=== PATIENT | male | born 1955 | race Caucasian/White ===

== ENCOUNTER → 2016-12-02 | Outpatient (CLI) | payer BC, OTHER | LOC: RAD 08:02 | PROVIDERS: ATTEND Specialist | DX: C34.91 Malignant neoplasm of unspecified part of right bronchus or lung (principal) | CPT/HCPCS: 71260 ==

== ENCOUNTER → 2017-03-26 | Outpatient (CLI) | payer BC ==
[2017-03-26 18:57] LABS: ALANINE AMINOTRANSFERASE 28 U/L (21-72); ALBUMIN 3.8 g/dL (3.5-5.0); ALKALINE PHOSPHATASE 108 U/L (38-126); ANION GAP 9 (5-19); ASPARTATE AMINO TRANSFERASE 21 U/L (17-59); BILIRUBIN,DIRECT 0.6 mg/dL (0.0-0.4); BILIRUBIN,TOTAL 1.5 mg/dL (0.2-1.3); BLOOD UREA NITROGEN 16 mg/dL (7-20); CARBON DIOXIDE 28 mmol/L (22-30); CHLORIDE 105 mmol/L (98-107); CREATININE RESULT 1.12 mg/dL (0.52-1.25); GLUCOSE 100 mg/dL (75-110); POTASSIUM 4.6 mmol/L (3.6-5.0); SODIUM 141.9 mmol/L (137-145); TOTAL PROTEIN 6.9 g/dL (6.3-8.2)
[2017-03-26 19:27] LABS: CARCINOEMBRYONIC ANTIGEN 11.3 ng/mL (<3.0)
== END ==
LOC: OD 17:25
PROVIDERS: ATTEND Specialist
DX: C34.91 Malignant neoplasm of unspecified part of right bronchus or lung (principal)
CPT/HCPCS: 36415; 80053; 82378

== ENCOUNTER → 2017-04-01 | Outpatient (CLI) | payer BC ==
--- NOTE | 2017-04-01 12:00 | RADIOLOGY REPORT (SQ) ---
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 TECHNIQUE: Multiplanar imaging includes noncontrasted T1, T2, FLAIR, diffusion with ADC map and post gadolinium contrast T1 sequences. Images stored on PACS. CONTRAST TYPE AND DOSE: 15 mL Multihance. RENAL FUNCTION: GFR > 60. LIMITATIONS: None. FINDINGS: ANATOMY: No anomalies. Normal vascular flow voids. Pituitary fossa normal. CSF SPACES: Normal in size and contour. No hemorrhage. CEREBRUM: Sulci and gyri normal in size and contour. Normal white matter signal on FLAIR imaging. No evidence of hemorrhage, mass, or extraaxial fluid collection. No abnormal enhancement post contrast. POSTERIOR FOSSA: No signal alteration. No hemorrhage. No edema, masses, or mass effect. Internal yamile tory canals, cerebellopontine angles, mastoids normal. No enhancing lesions. No abnormal enhancement post contrast. DIFFUSION IMAGING: Negative for acute or subacute infarction. ORBITS: No masses. Globes normal. PARANASAL SINUSES: No fluid levels. OTHER: No other significant finding. IMPRESSION: NORMAL MRI OF THE BRAIN WITHOUT AND WITH INTRAVENOUS GADOLINIUM CONTRAST. TECHNICAL DOCUMENTATION: JOB ID: [id number] [employer]- All Rights Reserved
== END ==
LOC: RAD 09:01
PROVIDERS: ATTEND Specialist
DX: C34.91 Malignant neoplasm of unspecified part of right bronchus or lung (principal)
CPT/HCPCS: 70553; A9577

== ENCOUNTER → 2017-06-19 | Outpatient (CLI) | payer BC ==
--- NOTE | 2017-06-19 13:26 | RADIOLOGY REPORT (SQ) ---
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 TECHNIQUE: Blood glucose level was verified. Above dose of FDG was injected intravenously. 2-D seg mented attenuation correction images were obtained from the base of the skull to the midthighs. Nonc ontrast CT images were obtained for attenuation correction and fusion with emission images. CT image s were performed without oral or intravenous contrast and are not sensitive for parenchymal lesions. A series of overlapping emission PET images were obtained. Images reviewed and manipulated at [facility] work station by the radiologist. Images stored on PACS. LIMITATIONS: None. FINDINGS: HEAD AND NECK: No areas of abnormal metabolic activity in the soft tissues of the head and neck. CHEST: Since the prior PET-CT on 03/24/2017, and since the prior CT chest 12/02/2016, patient has develo ped mediastinal adenopathy which is hypermetabolic. Index lesions are as follows: Prevascular 1.8 x 1.1 cm lymph node axial image 89, SUV 3.8 Left hilar 1.1 x 0.9 cm in lymph node axial image 98, SUV 3.9 Right hilar lymph node 1.3 x 1.3 cm axial image 99, SUV 4.7 Sub- carinal lymph node 3.8 x 1.2 cm axial image 102, SUV 4.5. ABDOMEN AND PELVIS: Along the right lobe liver subdiaphragmatic surface axial image 23, a 3 x 2.6 cm hypermetabolic mass is present with SUV 8.5 (was 1.5 cm in size, SUV 6.3 on prior PET-CT 03/24/2017). In the right lobe liver anterior segment axial image 132, a 2 x 2 cm hypermetabolic mass is present w ith SUV 6.6 (was 2.2 cm in size on 03/24/2017 PET-CT). PROXIMAL LOWER EXTREMITIES: No areas of abnormal metabolic activity in the soft tissues of the lower extremities. BONES: No abnormal metabolic activity in the visualized skeleton. ADDITIONAL CT FINDINGS: Right upper lobectomy. Small hiatal hernia. Minimal left coronary artery ca lcification. OTHER: Baseline blood pool activity SUV 1.5, background liver activity SUV 1.8. IMPRESSION: Since the prior most recent studies, patient has developed hypermetabolic mediastinal ad enopathy. Sub- diaphragmatic surface left lobe liver lesion has increased in size TECHNICAL DOCUMENTATION: JOB ID: [id number] [employer]- All Rights Reserved
== END ==
LOC: RAD 08:18
PROVIDERS: ATTEND Internal Medicine
DX: C34.91 Malignant neoplasm of unspecified part of right bronchus or lung (principal)
CPT/HCPCS: 78815; A9552

== ENCOUNTER → 2017-10-07 | Outpatient (CLI) | payer BC ==
--- NOTE | 2017-10-07 11:13 | RADIOLOGY REPORT (SQ) ---
EXAM DESCRIPTION: CT CHEST WITH; CT ABD/PELVIS WITH IV ORAL COMPLETED DATE/TIME: 10/07/2017 8:33 am REASON FOR STUDY: C34.91 MALIGNANT NEOPLASM OF UNSPECIFIED PART OF RIGHT BRONCHUS OR LUNG C34.91 MA LIGNANT NEOPLASM OF UNSP PART OF RIGHT BRONCHUS OR COMPARISON: PET-CT 06/19/2017 CT chest 12/02/2016, 06/02/2016, 11/28/2015 CT chest abdomen pelvis 05/15/2015 CONTRAST TYPE AND DOSE: contrast/concentration: Isovue 370.00 mg/ml; Total Contrast Delivered: 79.0 ml; Total Saline Delivered: 68.0 ml RENAL FUNCTION: Creatinine 0.9 TECHNIQUE: CT scan of the chest performed using helical scanning technique with dynamic intravenous contrast injection. Images reviewed with lung, soft tissue and bone windows. Reconstructed coronal a nd sagittal MPR images reviewed. All images stored on PACS. CT scan of the abdomen and pelvis performed with intravenous and with oral contrastusing helical scan chema technique with dynamic intravenous contrast injection. Images reviewed with lung, soft tissue a nd bone windows. Reconstructed coronal and sagittal MPR images reviewed. Delayed images for evaluat ion of the urinary system also acquired and evaluated. All images stored on PACS. All CT scanners at this facility use dose modulation, iterative reconstruction, and/or weight based d osing when appropriate to reduce radiation dose to as low as reasonably achievable (ALARA). [facility]: Dose Right [facility]: CareDose [facility]: Dose Right [facility]: Teradose 4D [facility]: Smart [employer] RADIATION DOSE: CT Rad equipment meets quality standard of care and radiation dose reduction techniq ues were employed. CTDIvol: 7.0 - 8.3 mGy. DLP: 1093 mGy-cm. . LIMITATIONS: None. FINDINGS: CHEST: LUNGS AND PLEURA: Post right upper lobectomy. No worrisome lung nodules. No pleural effusions or pl eural nodules. No pneumothorax. Airways are patent. HILAR AND MEDIASTINAL STRUCTURES: Stable mediastinal adenopathy compared to 06/19/2017 as follows: Prevascular node 2 x 1.4 cm axial image 22 Left hilum node 1.2 x 0.7 cm axial image 27 Right hilum 1.1 x 0.7 cm node axial image 27 Sub- carinal 3.1 x 1.2 cm node axial image 29. HEART AND VASCULAR STRUCTURES: No aneurysm or dissection. No central pulmonary emboli. No pericardi al effusion. HARDWARE: None. THYROID AND OTHER SOFT TISSUES: No masses. No adenopathy. BONES: No significant finding. OTHER: No other significant finding. ABDOMEN AND PELVIS: LIVER: Decrease in size of liver nodules compared to 06/19/2017 as follows: Right lobe liver subdiaphr agmatic surface 2.3 x 2.3 cm (was 3 x 2.6 cm on 06/19/2017) Right lobe liver inferiorly 1.4 x 1.4 cm (was 2 x 2 cm on 06/19/2017) SPLEEN: Normal size. No focal lesions. PANCREAS: No masses. No significant calcifications. No adjacent inflammation or peripancreatic fluid collections. Pancreatic duct not dilated. GALLBLADDER: No identified stones by CT criteria. No inflammatory changes to suggest cholecystitis. ADRENAL GLANDS: No significant masses or asymmetry. RIGHT KIDNEY AND URETER: No solid masses. No significant calcification. No hydronephrosis or hydroure ter. LEFT KIDNEY AND URETER: No solid masses. 1 cm hemorrhagic cyst left upper pole kidney axial image 28 unchanged. No significant calcification. No hydronephrosis or hydroureter. AORTA AND VESSELS: No aneurysm. No dissection. Renal arteries, SMA, celiac without stenosis. RETROPERITONEUM: There is a celiac lymph node on abdomen CT image 27, 2.1 x 2.1 cm size. This is un changed from prior PET-CT 06/19/2017 and is better visualized today due to IV contrast BOWEL AND PERITONEAL CAVITY: No masses or inflammatory changes. No free fluid or peritoneal masses. APPENDIX: Normal. ABDOMINAL WALL: No masses. No hernias. BONES: No significant or acute findings. PELVIS: Enlarged prostate. Grossly normal bladder and rectum. No adenopathy or free fluid. No othe r significant finding. IMPRESSION: Stable mediastinal lymph nodes compared to PET-CT 06/19/2017 Decrease in size of right lobe liver metastatic lesions compared to PET-CT 06/19/2017 Stable celiac lymph node compared to PET-CT 06/19/2017 TECHNICAL DOCUMENTATION: JOB ID: [id number] Quality ID # 436: Final reports with documentation of one or more dose reduction techniques (e.g., Au tomated exposure control, adjustment of the mA and/or kV according to patient size, use of iterative reconstruction technique) 2010 [employer]- All Rights Reserved
== END ==
LOC: RAD 08:00
PROVIDERS: ATTEND Internal Medicine Hematology & Oncology
DX: C34.91 Malignant neoplasm of unspecified part of right bronchus or lung (principal); C78.7 Secondary malignant neoplasm of liver and intrahepatic bile duct
CPT/HCPCS: 71260; 74177

== ENCOUNTER → 2017-12-21 | Outpatient (CLI) | payer BC ==
--- NOTE | 2017-12-21 11:48 | RADIOLOGY REPORT (SQ) ---
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 Images reviewed with lung, soft tissue and bone windows. Reconstructed coronal and sagittal MPR images reviewed. All images stored on PACS. All CT scanners at this facility use dose modulation, iterative reconstruction, and/or weight based d osing when appropriate to reduce radiation dose to as low as reasonably achievable (ALARA). [facility]: Dose Right [facility]: CareDose [facility]: Dose Right [facility]: Teradose 4D [facility]: [employer] CONTRAST TYPE AND DOSE: contrast/concentration: Isovue 370.00 mg/ml; Total Contrast Delivered: 80.0 ml; Total Saline Delivered: 55.0 ml RENAL FUNCTION: BUN 12 creatinine 1.0 RADIATION DOSE: CT Rad equipment meets quality standard of care and radiation dose reduction techniq ues were employed. CTDIvol: 11.7 mGy. DLP: 474 mGy-cm. . LIMITATIONS: None. FINDINGS: LUNGS AND PLEURA: Prior right upper lobectomy. No suspicious nodules. No effusions. HILAR AND MEDIASTINAL STRUCTURES: No identified masses or abnormal nodes. HEART AND VASCULAR STRUCTURES: No aneurysm or dissection. No central pulmonary emboli. No pericardi al effusion. HARDWARE: None in the chest. UPPER ABDOMEN: Stable liver lesions. THYROID AND OTHER SOFT TISSUES: No masses. No adenopathy. BONES: No significant finding. OTHER: No other significant finding. IMPRESSION: Stable appearance of the chest. TECHNICAL DOCUMENTATION: JOB ID: [id number] Quality ID # [id number]: Final reports with documentation of one or more dose reduction techniques (e.g., Au tomated exposure control, adjustment of the mA and/or kV according to patient size, use of iterative reconstruction technique) 2010 [employer]- All Rights Reserved Reading location - IP/workstation name: [email or web address]
== END ==
LOC: RAD 08:23
PROVIDERS: ATTEND Internal Medicine Hematology & Oncology
DX: C34.91 Malignant neoplasm of unspecified part of right bronchus or lung (principal)
CPT/HCPCS: 71260

== ENCOUNTER → 2018-03-25 | Outpatient (CLI) | payer BC ==
--- NOTE | 2018-03-25 11:03 | RADIOLOGY REPORT (SQ) ---
EXAM DESCRIPTION: U/S ABDOMEN LIMITED W/O DOP COMPLETED DATE/TIME: 03/25/2018 10:46 am REASON FOR STUDY: ABDOMINAL PAIN R10.9 UNSPECIFIED ABDOMINAL PAIN COMPARISON: CT dated 10/07/2017 and PET-CT dated 06/19/2017. TECHNIQUE: Dynamic and static grayscale images acquired of the abdomen and recorded on PACS. Additio nal selected color Doppler and spectral images recorded. LIMITATIONS: None. FINDINGS: PANCREAS: No masses. Visualized pancreatic duct normal caliber. LIVER: Masses measuring 2.7 cm and 2.8 cm. Echotexture normal. LIVER VASCULATURE: Normal directional flow of the main portal vein and hepatic veins. GALLBLADDER: No stones. Normal wall thickness. No pericholecystic fluid. ULTRASOUND-DETECTED HICKEY'S SIGN: Negative. INTRAHEPATIC DUCTS AND COMMON DUCT: CBD and intrahepatic ducts normal caliber. No filling defects. INFERIOR VENA CAVA: Normal flow. AORTA: No aneurysm. RIGHT KIDNEY: Normal size. Normal echogenicity. No solid or suspicious masses. No hydronephrosis. No calcifications. PERITONEAL AND RIGHT PLEURAL SPACE: No ascites or effusions. OTHER: No other significant findings. IMPRESSION: TWO HEPATIC MASSES, ALSO SEEN ON PREVIOUS CT AND PET SCAN. NO OTHER SIGNIFICANT FINDING . TECHNICAL DOCUMENTATION: JOB ID: [id number] [employer]- All Rights Reserved Reading location - IP/workstation name: [email or web address]
== END ==
LOC: RAD 09:43
PROVIDERS: ATTEND Internal Medicine Hematology & Oncology
DX: R10.9 Unspecified abdominal pain (principal); E80.7 Disorder of bilirubin metabolism, unspecified
CPT/HCPCS: 76705

== ENCOUNTER → 2018-04-16 | Outpatient (CLI) | payer BC ==
--- NOTE | 2018-04-16 10:19 | RADIOLOGY REPORT (SQ) ---
EXAM DESCRIPTION: CT CHEST WITH; CT ABDOMEN WITH IV ORAL CONT COMPLETED DATE/TIME: 04/16/2018 8:56 am REASON FOR STUDY: LUNG CA C34.91 MALIGNANT NEOPLASM OF UNSP PART OF RIGHT BRONCHUS OR COMPARISON: CT chest 12/21/2017 CONTRAST TYPE AND DOSE: contrast/concentration: Isovue 370.00 mg/ml; Total Contrast Delivered: 80.6 ml; Total Saline Delivered: 20.0 ml RENAL FUNCTION: Creatinine 1.0 TECHNIQUE: CT scan of the chest performed using helical scanning technique with dynamic intravenous contrast injection. Images reviewed with lung, soft tissue and bone windows. Reconstructed coronal a nd sagittal MPR images reviewed. All images stored on PACS. CT scan of the abdomen and pelvis performed with intravenous and with oral contrastusing helical scan chema technique with dynamic intravenous contrast injection. Images reviewed with lung, soft tissue a nd bone windows. Reconstructed coronal and sagittal MPR images reviewed. Delayed images for evaluat ion of the urinary system also acquired and evaluated. All images stored on PACS. All CT scanners at this facility use dose modulation, iterative reconstruction, and/or weight based d osing when appropriate to reduce radiation dose to as low as reasonably achievable (ALARA). [facility]: Dose Right [facility]: CareDose [facility]: Dose Right [facility]: Teradose 4D [facility]: [employer] RADIATION DOSE: CT Rad equipment meets quality standard of care and radiation dose reduction techniq ues were employed. CTDIvol: 7.9 - 10.0 mGy. DLP: 1102 mGy-cm. . LIMITATIONS: None. FINDINGS: CHEST: LUNGS AND PLEURA: No opacities, nodules, masses. No pneumothorax. No effusions. Post right upper lo bectomy. HILAR AND MEDIASTINAL STRUCTURES: No identified masses or abnormal nodes. The mediastinal and hilar adenopathy seen on CT chest abdomen pelvis 10/07/2017 has resolved. HEART AND VASCULAR STRUCTURES: No aneurysm or dissection. No central pulmonary emboli. No pericardi al effusion. HARDWARE: None. THYROID AND OTHER SOFT TISSUES: No masses. No adenopathy. BONES: No significant finding. OTHER: No other significant finding. ABDOMEN AND PELVIS: LIVER: The sub- diaphragmatic surface right lobe liver mass is now 2.6 x 2.4 cm in size (was 1.9 x 1. 2 cm on 12/21/2017, 2.3 x 2.3 cm on 10/07/2017). The inferior right lobe liver lesion is now 2.4 x 2.2 cm in size (was 1.3 x 1.1 cm 12/21/2017, was 1.4 x 1.4 cm on 10/07/2017). SPLEEN: Normal size. No focal lesions. PANCREAS: No masses. No significant calcifications. No adjacent inflammation or peripancreatic fluid collections. Pancreatic duct not dilated. GALLBLADDER: No identified stones by CT criteria. No inflammatory changes to suggest cholecystitis. ADRENAL GLANDS: No significant masses or asymmetry. RIGHT KIDNEY AND URETER: No solid masses. No significant calcification. No hydronephrosis or hydroure ter. LEFT KIDNEY AND URETER: No solid masses. Subcentimeter hemorrhagic cyst left upper pole kidney. No significant calcification. No hydronephrosis or hydroureter. AORTA AND VESSELS: No aneurysm. No dissection. Renal arteries, SMA, celiac without stenosis. RETROPERITONEUM: There is an enlarged celiac lymph node, 3.6 x 2.2 cm in size (was 2.1 x 2.1 cm on ). This lymph node is best shown on axial image 61. BOWEL AND PERITONEAL CAVITY: Patient drank oral contrast. No CT evidence of bowel obstruction. No f ree intraperitoneal air or fluid. Few colonic diverticuli APPENDIX: Normal. ABDOMINAL WALL: No masses. No hernias. PELVIS: No mass or free fluid. Normal bladder. BONES: No significant or acute findings. OTHER: No other significant finding. IMPRESSION: Post right upper lobectomy. Mediastinal and hilar adenopathy seen on prior exams has re solved. Increase in size of liver lesions Increase in size of celiac lymph node TECHNICAL DOCUMENTATION: JOB ID: [id number] Quality ID # [id number]: Final reports with documentation of one or more dose reduction techniques (e.g., Au tomated exposure control, adjustment of the mA and/or kV according to patient size, use of iterative reconstruction technique) 2010 [email or web address]- All Rights Reserved Reading location - IP/workstation name: [email or web address]
== END ==
LOC: RAD 07:48
PROVIDERS: ATTEND Internal Medicine Hematology & Oncology
DX: C34.91 Malignant neoplasm of unspecified part of right bronchus or lung (principal)
CPT/HCPCS: 71260; 74160

== ENCOUNTER → 2018-06-29 | Outpatient (CLI) | payer BC ==
--- NOTE | 2018-06-29 10:10 | RADIOLOGY REPORT (SQ) ---
EXAM DESCRIPTION: CT CHEST WITH; CT ABDOMEN WITH IV ORAL CONT COMPLETED DATE/TIME: 06/29/2018 9:23 am REASON FOR STUDY: LUNG CA (C34.91) C34.91 MALIGNANT NEOPLASM OF UNSP PART OF RIGHT BRONCHUS OR COMPARISON: PET-CT 06/19/2017 CT chest abdomen and pelvis 04/16/2018, 05/15/2015 CT chest 12/21/2017, 10/07/2017 CONTRAST TYPE AND DOSE: contrast/concentration: Isovue 350.00 mg/ml; Total Contrast Delivered: 92.0 ml; Total Saline Delivered: 71.0 ml RENAL FUNCTION: Creatinine 1.0 TECHNIQUE: CT scan of the chest performed using helical scanning technique with dynamic intravenous contrast injection. Images reviewed with lung, soft tissue and bone windows. Reconstructed coronal a nd sagittal MPR images reviewed. All images stored on PACS. CT scan of the abdomen performed with intravenous and with oral contrastusing helical scanning techni que with dynamic intravenous contrast injection. Images reviewed with lung, soft tissue and bone win dows. Reconstructed coronal and sagittal MPR images reviewed. Delayed images for evaluation of the urinary system also acquired and evaluated. All images stored on PACS. All CT scanners at this facility use dose modulation, iterative reconstruction, and/or weight based d osing when appropriate to reduce radiation dose to as low as reasonably achievable (ALARA). [facility]: Dose Right [facility]: CareDose [facility]: Dose Right [facility]: Teradose 4D [facility]: [employer] RADIATION DOSE: CT Rad equipment meets quality standard of care and radiation dose reduction techniq ues were employed. CTDIvol: 6.4 - 6.6 mGy. DLP: 735 mGy-cm. . LIMITATIONS: None. FINDINGS: CHEST: LUNGS AND PLEURA: Post right upper lobectomy. No masses. No pleural effusion. No acute infiltrates . No pneumothorax. HILAR AND MEDIASTINAL STRUCTURES: No identified masses or abnormal nodes. HEART AND VASCULAR STRUCTURES: No aneurysm or dissection. No central pulmonary emboli. No pericardi al effusion. HARDWARE: None. THYROID AND OTHER SOFT TISSUES: No masses. No adenopathy. BONES: No significant finding. OTHER: No other significant finding. ABDOMEN AND PELVIS: LIVER: Increase in size of liver masses compared to 04/16/2018 as follows: Right lobe sub- diaphragmatic surface 4 x 3.7 cm mass (was 2.6 x 2.4 cm 04/16/2018). Right lobe liver 3 x 2.4 cm mass (was 2.3 x 2.2 cm 04/16/2018). SPLEEN: Normal size. No focal lesions. PANCREAS: No masses. No significant calcifications. No adjacent inflammation or peripancreatic fluid collections. Pancreatic duct not dilated. GALLBLADDER: No identified stones by CT criteria. No inflammatory changes to suggest cholecystitis. ADRENAL GLANDS: No significant masses or asymmetry. RIGHT KIDNEY AND URETER: No solid masses. No significant calcification. No hydronephrosis or hydroure ter. LEFT KIDNEY AND URETER: No solid masses. No significant calcification. No hydronephrosis or hydrouret er. AORTA AND VESSELS: No aneurysm. No dissection. Renal arteries, SMA, celiac without stenosis. RETROPERITONEUM: Celiac lymph node measures 3.8 x 2.4 cm in size on axial image 28 (was 3.6 x 2.3 cm on 04/16/2018). BOWEL AND PERITONEAL CAVITY: No masses or inflammatory changes. No free fluid or peritoneal masses. APPENDIX: Normal. ABDOMINAL WALL: No masses. No hernias. BONES: No significant or acute findings. OTHER: No other significant finding. IMPRESSION: Post right upper lobectomy. No recurrent mediastinal masses or adenopathy. Increase in size of liver lesions and celiac lymph node compared to 04/16/2018. TECHNICAL DOCUMENTATION: JOB ID: [id number] Quality ID # [id number]: Final reports with documentation of one or more dose reduction techniques (e.g., Au tomated exposure control, adjustment of the mA and/or kV according to patient size, use of iterative reconstruction technique) 2010 [employer]- All Rights Reserved Reading location - IP/workstation name: [email or web address]
== END ==
LOC: RAD 07:55
PROVIDERS: ATTEND Internal Medicine Hematology & Oncology
DX: C34.91 Malignant neoplasm of unspecified part of right bronchus or lung (principal)
CPT/HCPCS: 71260; 74160

== ENCOUNTER 2019-04-21 09:25 | Emergency (ER) | payer BC ==
[2019-04-21] MEDS ORDERED: ONDANSETRON 4 MG TAB.RAPDIS PO ONE (10:03)
--- NOTE | 2019-04-21 10:03 | ER Document Report ---
ED Medical Screen (RME) - General Chief Complaint: Shortness Of Breath Stated Complaint: SHORTNESS OF BREATH Time Seen by Provider: 04/21/19 10:00 Primary Care Provider: CARLOTTA LUCIO MD [Primary Care Provider] - Follow up as needed Mode of Arrival: Ambulatory Information source: Patient Notes: 63-year-old male presented to ED for complaint of shortness of breath and right flank pain. He states he has a history of liver problems kidney problems he is been very short of breath yesterday and today he vomited once yesterday and twice today. He states he does not have chest pain. Patient is alert oriented respirations regular and unlabored speaking in full sentences walks with even steady gait. He is a former smoker does not use drugs or alcohol. I have greeted and performed a rapid initial assessment of this patient. A comprehensive ED assessment and evaluation of the patient, analysis of test results and completion of medical decision making process will be conducted by an additional ED providers. Dictation of this chart was performed using voice recognition software; therefore, there may be some unintended grammatical errors. TRAVEL OUTSIDE OF THE [place] IN LAST 30 DAYS: No - Related Data Allergies/Adverse Reactions: diphenhydramine HCl [From Benadryl] Allergy (Verified 02/21/14 09:40) Past Medical History - Past Medical History Cardiac Medical History: Reports: Hx Hypercholesterolemia, Hx Hypertension - HX OF Denies: Hx Coronary Artery Disease, Hx Heart Attack Pulmonary Medical History: Denies: Hx Asthma, Hx Bronchitis, Hx COPD, Hx Pneumonia Neurological Medical History: Denies: Hx Cerebrovascular Accident, Hx Seizures Renal/ Medical History: Reports: Hx Kidney Stones. Denies: Hx End Stage Renal Disease, Hx Renal Insufficiency GI Medical History: Reports: Hx Gastroesophageal Reflux Disease Musculoskeltal Medical History: Denies Hx Arthritis - Immunizations Hx Diphtheria, Pertussis, Tetanus Vaccination: No History of Influenza Vaccine for 07/2017 - 12/2017 Season: Unknown Physical Exam - Vital signs Vitals: Temp Pulse Resp BP Pulse Ox 97.7 F 58 L 16 163/75 H 99 04/21/19 09:37 04/21/19 09:37 04/21/19 09:37 04/21/19 09:37 04/21/19 09:37 Course - Vital Signs Vital signs: Temp Pulse Resp BP Pulse Ox 97.7 F 58 L 16 163/75 H 99 07/04/19 09:37 04/21/19 09:37 04/21/19 09:37 04/21/19 09:37 04/21/19 09:37 Doctor's Discharge - Discharge Referrals: CARLOTTA LUCIO MD [Primary Care Provider] - Follow up as needed
[2019-04-21 10:37] LABS: ABSOLUTE BASOPHILS # (AUTO) 0.1 10^3/uL (0.0-0.2); ABSOLUTE EOSINOPHILS # (AUTO) 0.3 10^3/uL (0.0-0.6); ABSOLUTE LYMPHOCYTES (AUTO) 0.6 10^3/uL (0.5-4.7); ABSOLUTE MONOCYTES (AUTO) 0.2 10^3/uL (0.1-1.4); ABSOLUTE NEUT (AUTO) 5.9 10^3/uL (1.7-8.2); BASOPHILS % (AUTO) 0.8 % (0-2); EOSINOPHILS % (AUTO) 4.3 % (0-6); LYMPHOCYTES % (AUTO) 8.8 % (13-45); MEAN CORPUSCULAR HEMOGLOBIN 29.6 pg (27.0-33.4); MEAN CORPUSCULAR HGB CONC 33.3 g/dL (32.0-36.0); MEAN CORPUSCULAR VOLUME 89 fl (80-97); MONOCYTES % (AUTO) 3.4 % (3-13); PLATELET COUNT 445 10^3/uL (150-450); RED BLOOD COUNT 4.06 10^6/uL (4.35-5.55); RED CELL DISTRIBUTION WIDTH 13.6 % (11.5-14.0); SEGMENTED NEUTROPHILS % (AUTO) 82.7 % (42-78); TOTAL CELLS COUNTED % (AUTO) 100 %; WHITE BLOOD COUNT 7.2 10^3/uL (4.0-10.5)
[2019-04-21 10:42] LABS: PROTHROMBIN TIME 13.2 SEC (11.4-15.4)
[2019-04-21 10:43] LABS: PARTIAL THROMBOPLASTIN TIME 33.2 SEC (23.5-35.8)
[2019-04-21 10:45] LABS: AMORPHOUS SEDIMENT,URINE TRACE /HPF; APPEARANCE,URINE CLOUDY; BILIRUBIN,URINE NEGATIVE (NEGATIVE); COLOR,URINE YELLOW; GLUCOSE, URINE NEGATIVE (NEGATIVE); KETONES,URINE NEGATIVE (NEGATIVE); LEUKOCYTE ESTERASE,URINE NEGATIVE (NEGATIVE); NITRITE,URINE NEGATIVE (NEGATIVE); PROTEIN,URINE NEGATIVE (NEGATIVE); URINE SPECIFIC GRAVITY 1.013
[2019-04-21 10:52] LABS: ALANINE AMINOTRANSFERASE 16 U/L (21-72); ALBUMIN 3.7 g/dL (3.5-5.0); ALKALINE PHOSPHATASE 131 U/L (38-126); ANION GAP 7 (5-19); ASPARTATE AMINO TRANSFERASE 24 U/L (17-59); BILIRUBIN,DIRECT 0.2 mg/dL (0.0-0.4); BILIRUBIN,TOTAL 0.4 mg/dL (0.2-1.3); BLOOD UREA NITROGEN 14 mg/dL (7-20); CALCIUM 9.6 mg/dL (8.4-10.2); CARBON DIOXIDE 34 mmol/L (22-30); CHLORIDE 97 mmol/L (98-107); GLUCOSE 96 mg/dL (75-110); LIPASE 69.5 U/L (23-300); SODIUM 137.5 mmol/L (137-145); TOTAL PROTEIN 6.7 g/dL (6.3-8.2)
[2019-04-21 10:53] LABS: CREATINE KINASE < 20 U/L (55-170)
--- NOTE | 2019-04-21 10:58 | ER Document Report ---
ED Respiratory Problem - General Chief Complaint: Shortness Of Breath Stated Complaint: SHORTNESS OF BREATH Time Seen by Provider: 04/21/19 10:00 Primary Care Provider: CARLOTTA LUCIO MD [Primary Care Provider] - Follow up as needed Mode of Arrival: Ambulatory Notes: Patient says he feels like he "cannot breathe" this morning. He says it started a little bit yesterday, but much worse today. Feels like he cannot get a good deep breath. Says is been going on for a couple of months intermittently but not this bad. Since he arrived here at the emergency department, he is also noticed that he is having shakes and feeling cold. Complains of some pain in the right side of his lower back. Vomited 2 or 3 times since yesterday. No diarrhea. Actually, constipated because he is on oxycodone and fentanyl patches for pain. Patient denies any significant cough or chest congestion. Has not had any fever. No new TIA symptoms. Patient's past history is significant and that he has cancer of the lung with mets to liver and kidney. He was diagnosed 3 years ago. Had a 3 cm mass rem ezra from his lung early in his disease. Was on chemotherapy but chose to stop taking it this spring because it was "killing me". Patient sees Dr. Corona, local oncologist. Patient says he has lost about 60 pounds over the past year, saying he weighed about 210 pounds a year ago and in triage today he is 144 pounds. No history of blood clots. 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 Does not smoke for over 30 years. TRAVEL OUTSIDE OF THE [place] IN LAST 30 DAYS: No - Related Data Allergies/Adverse Reactions: diphenhydramine HCl [From Benadryl] Allergy (Verified 02/21/14 09:40) Past Medical History - General Information source: Patient - Social History Smoking Status: Former Smoker - Stopped over 30 years ago. Chew tobacco use (# tins/day): No Frequency of alcohol use: None Drug Abuse: None Family History: Reviewed & Not Pertinent Patient has suicidal ideation: No Patient has homicidal ideation: No - Past Medical History Cardiac Medical History: Reports: Hx Hypercholesterolemia, Hx Hypertension - HX OF Denies: Hx Coronary Artery Disease, Hx Heart Attack Pulmonary Medical History: Reports: Other - See HPI. Neurological Medical History: Denies: Hx Cerebrovascular Accident, Hx Seizures Endocrine Medical History: Denies: Hx Diabetes Mellitus Type 1, Hx Diabetes Mellitus Type 2 Renal/ Medical History: Reports: Hx Kidney Stones Malignancy Medical History: Reports Hx Lung Cancer - Lung cancer with metastases to liver and kidney GI Medical History: Reports: Hx Gastroesophageal Reflux Disease Musculoskeletal Medical History: Denies Hx Arthritis Past Surgical History: Reports: Other - Lung surgery about 3 years ago for a mass, determined to be cancer. - Immunizations Hx Diphtheria, Pertussis, Tetanus Vaccination: No Review of Systems - Review of Systems Notes: REVIEW OF SYSTEMS: CONSTITUTIONAL : Denies fever. EENT: Denies eye, ear, nose or mouth or throat pain or other symptoms. CARDIOVASCULAR: Denies chest pain. RESPIRATORY: Denies cough, chest congestion, but experiencing shortness of breath. GASTROINTESTINAL: Denies abdominal pain. Has had vomiting 2 or 3 times since yesterday. Constipated, likely due to narcotic pain medications. GENITOURINARY: Denies difficulty or painful urinating, urinary frequency, blood in urine. MUSCULOSKELETAL: Has chronic back pain and arthritis. Also pain in the right hip. Denies neck pain. Denies joint pain or swelling. SKIN: Denies rash or skin lesions. NEUROLOGICAL: Denies LOC or altered mental status. Denies headache. Denies sensory loss or motor deficits. ALL OTHER SYSTEMS REVIEWED AND NEGATIVE. Physical Exam - Vital signs Vitals: Temp Pulse Resp BP Pulse Ox 97.7 F 58 L 16 163/75 H 99 04/21/19 09:37 04/21/19 09:37 04/21/19 09:37 04/21/19 09:37 04/21/19 09:37 Interpretation: Normal Notes: PHYSICAL EXAMINATION: GENERAL: Well-appearing, in no acute distress. HEAD: Atraumatic, normocephalic. EYES: Pupils equal round and reactive to light, extraocular movements intact. ENT: oropharynx clear without exudates. Moist mucous membranes. NECK: Normal range of motion, supple. LUNGS: Breath sounds clear and equal bilaterally. HEART: Regular rate and rhythm without murmurs. ABDOMEN: Soft, nontender. No guarding or rebound. No masses. BACK: No tenderness throughout entire back. EXTREMITIES: Normal range of motion without pain. No leg tenderness. Negative Homans bilaterally. NEUROLOGICAL: Normal speech, normal gait. Normal sensory, motor, and reflex exams. Awake, alert, and oriented x3. Cranial nerves normal. PSYCH: Normal mood, normal affect. SKIN: Warm, dry, no rashes. Course - Re-evaluation Re-evalutation: 04/21/19 14:27 Patient's CTA of the chest shows no evidence of any pulmonary emboli. Patient does have a 2 cm right apical mass and he was made aware. His CT of the abdomen with IV contrast showed 2 large confluent liver masses. All the rest of the patient's lab results are all essentially normal. I asked the patient if he thinks stress might be playing a role in his symptoms and he said he definitely we are going to give the patient a trial of Ativan to see if that helps his symptoms. Thinks that what is causing his breathing difficulties. He has an oxygen saturation of 98, 99, 100% on room air now. Patient will be given a prescription for some Ativan to try to see if that helps his symptoms. He is being asked to call his oncologist office on Thursday to make her aware of his studies and so they can review them. - Vital Signs Vital signs: Temp Pulse Resp BP Pulse Ox 97.7 F 58 L 15 146/82 H 98 04/21/19 09:37 04/21/19 09:37 04/21/19 14:01 04/21/19 14:01 04/21/19 14:01 - Laboratory Result Diagrams: 04/21/19 10:18 04/21/19 10:18 Laboratory results interpreted by me: 04/21/19 04/21/19 04/21/19 10:18 10:18 10:18 RBC 4.06 L Hgb 12.0 L Hct 36.0 L Seg Neutrophils % 82.7 H Lymphocytes % 8.8 L Chloride 97 L Carbon Dioxide 34 H ALT 16 L Alkaline Phosphatase 131 H Creatine Kinase < 20 L Urine Urobilinogen 2.0 H Discharge - Discharge Clinical Impression: Dyspnea, Lung cancer, Anxiety Condition: Stable Disposition: HOME, SELF-CARE Additional Instructions: SHORTNESS OF BREATH OR DYSPNEA: You were evaluated for shortness of breath, or dyspnea. Dyspnea has many causes, and some are more serious than others. Sometimes it's impossible to diagnose the cause of dyspnea with the tests that are available on an emergency basis. Based on our evaluation today, you do not need hospitalization now. We found no evidence of pneumonia, collapsed lung, blood clots in the lung, tumors, or heart failure. Causes of non-specific dyspnea can include asthma or bronchospasm, hyperventilation, emotional distress, heart disease, emphysema, fibrosis of the lung, and stiffness of the chest wall. In healthy individuals with a single episode, it's sometimes reasonable to do nothing but wait to see if the problem occurs again. Additional tests used to evaluate dyspnea can include cardiac stress testing, echocardiography, pulmonary function testing, CAT scan of the chest, bronchoscopy or pulmonary biopsy. Return if shortness of breath persists or worsens, or if you develop chest pain, fever, cough, confusion, or fainting. NORMAL EXAM AND WORKUP: At this time, your examination and workup show no significant abnormality. No significant abnormal physical findings were noted. All laboratory, EKG, and imaging (x-ray, CT scans, ultrasound) studies that were ordered show no signific ant abnormality. Although your examination and all studies that were ordered showed no significant abnormal finding, there are no examinations and no studies that are 100% accurate. There is always the possibility that some abnormality could exist and not be detected with physical examination or within the limits and capabilities of laboratory and other studies. You should return or follow up as you were instructed on your visit today for further evaluation if your symptoms do not resolve. Anxiety The physician feels that some of your health problems are being caused by anxiety. Anxiety affects your health in many ways. Anxiety alone can cause pa lpitations, sweats, chest pains, abdominal pains, shortness of breath, and headaches. It contributes to ulcer disease, high blood pressure, irritable bowel syndrome, and has been shown to cause flare-ups of many other diseases. Anxiety is not a simple disorder to treat. If the anxiety is due to recent life stresses, you may simply need time to "work through" the changes. If the anxiety is due to an underlying unhappiness with yourself or due to psychiatric disturbance, professional help will be needed. Your physician can refer you for further help if needed. Anti-anxiety medication is occasionally given if the stress is acute or if you are having trouble sleeping. Chronic or frequent use of these medications is not a good idea because the body becomes reliant on it, preventing you from dealing with life's normal stresses. Benzodiazepines You have been given a benzodiazepine medication. Examples of this type of medicine include Valium, Xanax, Librium, Ativan, and Halcion. Benzodiazepines have many uses. Medications of this type are used for insomnia, anxiety, muscle spasms, seizures, and drug and alcohol withdrawal. You may become very drowsy when you first take the medication. You should not drive or operate machinery while under its effects. Do not combine the medication with alcohol, or with any other medication without talking to your doctor. Do not take if without specific instruction from your carpet jack. Some benzodiazepines may have harmful interactions with oral antifungal medicines such as ketoconazole, itraconazole, and nefazodone. If you are taking an antifungal medicine, discuss this with your doctor before taking benzodiazepines. You may take 1 or 2 of the prescribed pills at a time as needed. You do not have to take them at all if you are not feeling short of breath. If these medications are helpful, your doctor can write you prescription for more of them. If you develop new or worsening symptoms, return for us to reevaluate your condition. FOLLOW-UP CARE: If you have been referred to a physician for follow-up care, call the physicians office for an appointment as you were instructed or within the next two days. If you experience worsening or a significant change in your symptoms, notify the physician immediately or return to the Emergency Department at any time for re-evaluation. Prescriptions: Lorazepam [Ativan 1 mg Tablet] 1 - 2 mg PO Q6HP PRN #30 tablet PRN Reason: Anxiety Referrals: CARLOTTA LUCIO MD [Primary Care Provider] - Follow up as needed
[2019-04-21 11:07] LABS: CREATINE KINASE MB < 0.22 ng/mL (<4.55); TROPONIN I < 0.012 ng/mL
--- NOTE | 2019-04-21 11:35 | RADIOLOGY REPORT (SQ) ---
EXAM DESCRIPTION: CHEST 2 VIEWS COMPLETED DATE/TIME: 04/21/2019 11:14 am REASON FOR STUDY: flank pain short of breath COMPARISON: CT chest 06/29/2018 EXAM PARAMETERS: NUMBER OF VIEWS: two views TECHNIQUE: Digital Frontal and Lateral radiographic views of the chest acquired. RADIATION DOSE: NA LIMITATIONS: none FINDINGS: LUNGS AND PLEURA: Post right upper lobectomy. Lungs are well inflated and free of focal i nfiltrates. No pleural effusion or pneumothorax. MEDIASTINUM AND HILAR STRUCTURES: Clips right hilum post upper lobectomy HEART AND VASCULAR STRUCTURES: Heart normal size. No evidence for failure. BONES: No acute findings. HARDWARE: None in the chest. OTHER: No other significant finding. IMPRESSION: Right upper lobectomy. No acute infiltrates TECHNICAL DOCUMENTATION: JOB ID: [id number] [employer]- All Rights Reserved Reading location - IP/workstation name: [email or web address]
--- NOTE | 2019-04-21 11:37 | RADIOLOGY REPORT (SQ) ---
EXAM DESCRIPTION: HIP RIGHT AP/LATERAL COMPLETED DATE/TIME: 04/21/2019 11:18 am REASON FOR STUDY: Right hip pain, Hx CA lung,? Meds COMPARISON: CT abdomen pelvis 06/29/2018, 04/16/2018 NUMBER OF VIEWS: Two views. TECHNIQUE: AP pelvis and additional frog-leg view of the right hip. LIMITATIONS: None. FINDINGS: MINERALIZATION: Normal. RIGHT HIP: No fracture or dislocation. No worrisome bone lesions. No significant joint space narrow ing or bony spurring. LEFT HIP: No fracture or dislocation. No worrisome bone lesions. No significant joint space narrowi ng or bony spurring. PUBIS AND ISCHIUM: No fracture. PELVIS: No fracture. SACRUM: No fracture or dislocation. No worrisome bone lesions. LOWER LUMBAR SPINE: Mild bilateral facet arthropathy at L5-S1 SOFT TISSUES: No findings. OTHER: No other significant finding. IMPRESSION: No acute findings TECHNICAL DOCUMENTATION: JOB ID: [id number] [employer]- All Rights Reserved Reading location - IP/workstation name: [email or web address]
[2019-04-21] MEDS ORDERED: OXYCODONE-ACETAMINOPHEN 5-325 MG TABLET PO ONE (11:57)
--- NOTE | 2019-04-21 13:42 | RADIOLOGY REPORT (SQ) ---
EXAM DESCRIPTION: CTA CHEST COMPLETED DATE/TIME: 04/21/2019 1:23 pm REASON FOR STUDY: Shortness of breath, Hx lung cancer, liver mets, COMPARISON: 06/29/2018 TECHNIQUE: CT scan of the chest performed using helical scanning technique with dynamic intravenous contrast injection. Images reviewed with lung, soft tissue and bone windows. Reconstructed coronal and sagittal MPR images reviewed. Additional 3 dimensional post-processing performed to develop Maximal Intensity Projection images (DE P). All images stored on PACS. All CT scanners at this facility use dose modulation, iterative reconstruction, and/or weight based d osing when appropriate to reduce radiation dose to as low as reasonably achievable (ALARA). [facility]: Dose Right [facility]: CareDose [facility]: Dose Right [facility]: Teradose 4D [facility]: Rifiniti CONTRAST TYPE AND DOSE: 98 mL Omnipaque 350- low osmolar. Contrast bolus adequate for pulmonary arteries and aorta. RENAL FUNCTION: BUN 14 creatinine 0.71 RADIATION DOSE: . LIMITATIONS: None. FINDINGS: LUNGS AND PLEURA: 2 cm apical mass on the right. AORTA AND GREAT VESSELS: No aneurysm. No dissection. HEART: No pericardial effusion. No significant coronary artery calcifications. PULMONARY ARTERIES: No emboli visualized in the main pulmonary arteries or the segmental branches. HILAR AND MEDIASTINAL STRUCTURES: No identified masses or abnormal nodes. HARDWARE: None in the chest. UPPER ABDOMEN: See separate report of the CT of the abdomen. THYROID AND OTHER SOFT TISSUES: No masses. No adenopathy. BONES: No acute or significant finding. 3D MIPS: Confirm above findings. OTHER: No other significant finding. IMPRESSION: 2 cm rim right apical lung mass. There is no evidence of pulmonary embolus. There is n o aortic aneurysm or dissection. COMMENT: Quality ID # [id number]: Final reports with documentation of one or more dose reduction techniques (e.g., Automated exposure control, adjustment of the mA and/or kV according to patient size, use of iterative reconstruction technique) TECHNICAL DOCUMENTATION: JOB ID: [id number] [employer]- All Rights Reserved Reading location - IP/workstation name: [email or web address]
--- NOTE | 2019-04-21 13:50 | RADIOLOGY REPORT (SQ) ---
EXAM DESCRIPTION: CT ABD/PELVIS WITH IV ONLY COMPLETED DATE/TIME: 04/21/2019 1:22 pm REASON FOR STUDY: Shortness of breath, Hx lung CA with liver mets COMPARISON: 06/29/2018 TECHNIQUE: CT scan of the abdomen and pelvis performed using helical scanning technique with dynamic intravenous contrast injection. No oral contrast. Images reviewed with lung, soft tissue, and bone windows. Reconstructed coronal and sagittal MPR images reviewed. Delayed images for evaluation of the urinary system also acquired. All images stored on PACS. All CT scanners at this facility use dose modulation, iterative reconstruction, and/or weight based d osing when appropriate to reduce radiation dose to as low as reasonably achievable (ALARA). [facility]: Dose Right [facility]: CareDose [facility]: Dose Right [facility]: Teradose 4D [facility]: [employer]Button CONTRAST TYPE AND DOSE: contrast/concentration: Isovue 350.00 mg/ml; Total Contrast Delivered: 98.0 ml; Total Saline Delivered: 77.0 ml RENAL FUNCTION: BUN 14 creatinine 0.71 RADIATION DOSE: CT Rad equipment meets quality standard of care and radiation dose reduction techniq ues were employed. CTDIvol: 3.3 - 15.2 mGy. DLP: 1870 mGy-cm.. LIMITATIONS: None. FINDINGS: LOWER CHEST: See separate report of the CT of the chest. LIVER: There are 2 large confluent lesions in the liver. The larger of the 2 is in the dome of the l iver and measures 7 cm on image 22 series 5. A smaller of these 2 measures 5 cm on image 28 series 5 . There are some small less well-defined lesions. SPLEEN: Normal size. No focal lesions. PANCREAS: No masses. No significant calcifications. No adjacent inflammation or peripancreatic fluid collections. Pancreatic duct not dilated. GALLBLADDER: No identified stones by CT criteria. No inflammatory changes to suggest cholecystitis. ADRENAL GLANDS: No significant masses or asymmetry. RIGHT KIDNEY AND URETER: No solid masses. No significant calcifications. No hydronephrosis or hyd roureter. LEFT KIDNEY AND URETER: No solid masses. No significant calcifications. No hydronephrosis or hydr oureter. AORTA AND VESSELS: No aneurysm. No dissection. Renal arteries, SMA, celiac without stenosis. RETROPERITONEUM: No retroperitoneal adenopathy, hemorrhage or masses. BOWEL AND PERITONEAL CAVITY: No masses or inflammatory changes. No free fluid or peritoneal masses. There is considerable ascites. APPENDIX: Not identified. PELVIS: Free fluid. Urinary bladder is normal. No pelvic mass. ABDOMINAL WALL: No masses. No hernias. BONES: No significant or acute findings. OTHER: No other significant finding. IMPRESSION: Increasing metastatic disease in the liver. Ascites. TECHNICAL DOCUMENTATION: JOB ID: [id number] Quality ID # [id number]: Final reports with documentation of one or more dose reduction techniques (e.g., Au tomated exposure control, adjustment of the mA and/or kV according to patient size, use of iterative reconstruction technique) 2010 [employer]- All Rights Reserved Reading location - IP/workstation name: [email or web address]
[2019-04-21] MEDS ORDERED: LORAZEPAM 1 MG TABLET PO ONE (14:26)
[2019-04-21 15:13] VITALS: BP 145/80
--- NOTE | 2019-04-21 18:36 | EKG REPORT ---
SEVERITY:- NORMAL ECG - SINUS RHYTHM : Confirmed by: Laura Raphael 21-Apr-2019 18:35:21
== END 2019-04-21 15:14 | disposition home or self-care (01) ==
LOC: ER 09:25
DX: R06.00 Dyspnea, unspecified (principal); C34.90 Malignant neoplasm of unspecified part of unspecified bronchus or lung; F41.9 Anxiety disorder, unspecified; R11.10 Vomiting, unspecified; R06.02 Shortness of breath; E78.00 Pure hypercholesterolemia, unspecified; I10 Essential (primary) hypertension; Z87.442 Personal history of urinary calculi
CPT/HCPCS: 93005; 99285; 36415; 82553; 82550; 83690; 85025; 85610; 85730; 80053; 81001; 84484; 71046; 73502; 71275; 74177; 93010; S0119

== ENCOUNTER 2019-05-08 23:40 | Emergency (ER) | payer BC ==
[2019-05-09] MEDS ORDERED: LIDOCAINE 2% URO-JET 5 ML KIT MM ONE (01:34)
--- NOTE | 2019-05-09 01:38 | ER Document Report ---
ED General - General Chief Complaint: Abdominal Swelling Stated Complaint: URINARY COMPLAINTS Time Seen by Provider: 05/09/19 01:21 Primary Care Provider: CARLOTTA LUCIO MD [Primary Care Provider] - Follow up in 3-5 days Notes: Patient is a pleasant 63-year-old male who presents with complaint of difficulty urinating. Patient says that he has lung and liver cancer and also metastasis to other places. Because of this he does have some ascitic fluid in the abdomen. Patient was seen here in April [address] scans performed which did not show any new concerning abnormalities. Patient says he is noticed that in the last several days that he has had difficulty urinating is not making as much urine as he typically does. He does have decreased appetite and has had some weight loss as expected with his cancer. He is not receiving chemotherapy and says that he does not take any further treatment in regards to his cancer as he says the treatment makes him feel worse. Denies any fevers. No other compla ints at this time. TRAVEL OUTSIDE OF THE [place] IN LAST 30 DAYS: No - Related Data Allergies/Adverse Reactions: diphenhydramine HCl [From Benadryl] Allergy (Verified 02/21/14 09:40) Past Medical History - Social History Smoking Status: Unknown if Ever Smoked Frequency of alcohol use: None Drug Abuse: None Family History: Reviewed & Not Pertinent - Past Medical History Cardiac Medical History: Reports: Hx Hypercholesterolemia, Hx Hypertension - HX OF Denies: Hx Coronary Artery Disease, Hx Heart Attack Pulmonary Medical History: Denies: Hx Asthma, Hx Bronchitis, Hx COPD, Hx Pneumonia Neurological Medical History: Denies: Hx Cerebrovascular Accident, Hx Seizures Endocrine Medical History: Denies: Hx Diabetes Mellitus Type 1, Hx Diabetes Mellitus Type 2 Renal/ Medical History: Reports: Hx Kidney Stones. Denies: Hx End Stage Renal Disease, Hx Peritoneal Dialysis, Hx Renal Insufficiency Malignancy Medical History: Reports Hx Lung Cancer - Lung cancer with metastases to liver and kidney GI Medical History: Reports: Hx Gastroesophageal Reflux Disease Musculoskeletal Medical History: Denies Hx Arthritis Past Surgical History: Reports: Other - Lung surgery about 3 years ago for a mass, determined to be cancer. - Immunizations Hx Diphtheria, Pertussis, Tetanus Vaccination: No Review of Systems - Review of Systems Notes: My Normal Review Basic REVIEW OF SYSTEMS: CONSTITUTIONAL : Denies fever, chills, or sweats. Denies recent illness. EENT: Denies eye, ear, throat, or mouth pain or symptoms. Denies nasal or sinus congestion. CARDIOVASCULAR: Denies chest pain. RESPIRATORY: Denies cough, cold, or chest congestion. Denies shortness of breath, difficulty breathing, or wheezing. GASTROINTESTINAL: suprapubic abdominal pain. Denies nausea, vomiting, or diarrhea. GENITOURINARY: Difficulty making urine MUSCULOSKELETAL: Denies neck or back pain or joint pain or swelling. SKIN: Denies rash or skin lesions. NEUROLOGICAL: Denies altered mental status or loss of consciousness. Denies headache. Denies weakness or paralysis or loss of use of either side. Denies problems with gait or speech. Denies sensory or motor loss. ALL OTHER SYSTEMS REVIEWED AND NEGATIVE. Physical Exam - Vital signs Vitals: Temp Pulse Resp BP Pulse Ox 98.4 F 73 16 143/84 H 98 05/09/19 00:03 05/09/19 00:03 05/09/19 00:03 05/09/19 00:03 05/09/19 00:03 - Notes Notes: General Appearance: Well nourished, alert, cooperative, no acute distress, no obvious discomfort. Well-appearing. Vitals: reviewed, See vital signs table. Head: no swelling or tenderness to the head Eyes: PERRL, EOMI, Conjuctiva clear Mouth: No decreasd moisture Lungs: No wheezing, No rales, No rhonci, No accessory muscle use, good air exchange bilaterally. Heart: Normal rate, Regular rythm, No murmur, no rub Abdomen: Normal BS, soft, No rigidity, mild suprapubic abdominal tenderness palpation, No guarding, no rebound, no abdominal masses, no organomegaly Extremities: strength 5/5 in all extremities, good pulses in all extremities, no swelling or tenderness in the extremities, no edema. Skin: warm, dry, appropriate color, no rash Neuro: speech clear, oriented x 3, normal affect, responds appropriately to questions. Course - Re-evaluation Re-evalutation: 05/09/19 01:38 I did do bedside ultrasound to evaluate patient's bladder space being that she just did urinate some. I want to see if he is retaining a lot of urine. It is difficult to tell if the bladder is flat or if he actually has some fluid in his bladder. He does have some ascitic fluid in the pelvis which is making it difficult for me to interpret what exactly the bladder what his ascitic fluid. I therefore will have them do a straight cath to see how much urine is in his bladder. 05/09/19 02:25 Straight cath only got out at 20 mL's of urine therefore the patient's bladder is flat therefore he is not retaining urine. 05/09/19 04:22 His urinalysis did not show any signs of infection. His kidney function is normal. He looks well. I feel he safe to be discharged home. I did talk to him his about ascites and went to have it drained. Currently patient's abdomen is soft and flat and not at all distended. He does not require drainage of ascites at this time. I informed him that if he starts to have significant distention, difficulty breathing, difficulty with bowel movements, if he feels unwell in any way he should return to ER. He is afebrile and does not have any signs of infection at this time. Not have significant abdominal pain. Patient is safe to be discharged home at this time. Patient and agree with plan patient will be discharged home. Dictation of this chart was performed using voice recognition software; therefore, there may be some unintended grammatical errors. - Vital Signs Vital signs: Temp Pulse Resp BP Pulse Ox 97.9 F 67 16 149/78 H 100 05/09/19 04:20 05/09/19 04:20 05/09/19 04:20 05/09/19 04:20 05/09/19 04:20 - Laboratory Result Diagrams: 05/09/19 02:22 05/09/19 02:22 Laboratory results interpreted by me: 05/09/19 05/09/19 05/09/19 02:22 02:22 02:22 WBC 12.2 H RBC 4.09 L Hgb 11.8 L Hct 35.8 L Lymphocytes % 8.2 L Eosinophils % 7.1 H Absolute Neutrophils 9.4 H Absolute Eosinophils 0.9 H Sodium 133.6 L BUN 22 H ALT 17 L Total Protein 6.0 L Albumin 3.2 L Urine Ascorbic Acid 40 H Discharge - Discharge Clinical Impression: Ascites Qualifiers: Ascites type: malignant Qualified Code(s): R18.0 - Malignant ascites Condition: Good Disposition: HOME, SELF-CARE Additional Instructions: Please continue to drink liquids and stay well-hydrated. Avoid alcohol if possible. Please feel free to return to the ER anytime if you feel that you are worsening in any way, you have severe abdominal pain, fevers, vomiting, or any further concerns. You have some fluid (ascites) and your abdomen. This may eventually need to be drained if your abdomen becomes very tight and firm and is causing difficulty having bowel movements or difficulty breathing. Referrals: CARLOTTA LUCIO MD [Primary Care Provider] - Follow up in 3-5 days
[2019-05-09 02:40] LABS: ABSOLUTE BASOPHILS # (AUTO) 0.1 10^3/uL (0.0-0.2); ABSOLUTE EOSINOPHILS # (AUTO) 0.9 10^3/uL (0.0-0.6); ABSOLUTE MONOCYTES (AUTO) 0.8 10^3/uL (0.1-1.4); ABSOLUTE NEUT (AUTO) 9.4 10^3/uL (1.7-8.2); EOSINOPHILS % (AUTO) 7.1 % (0-6); HEMATOCRIT 35.8 % (37.9-51.0); HEMOGLOBIN 11.8 g/dL (13.5-17.0); LYMPHOCYTES % (AUTO) 8.2 % (13-45); MEAN CORPUSCULAR HEMOGLOBIN 28.8 pg (27.0-33.4); MEAN CORPUSCULAR HGB CONC 32.9 g/dL (32.0-36.0); MEAN CORPUSCULAR VOLUME 87 fl (80-97); MONOCYTES % (AUTO) 6.4 % (3-13); PLATELET COUNT 441 10^3/uL (150-450); RED BLOOD COUNT 4.09 10^6/uL (4.35-5.55); RED CELL DISTRIBUTION WIDTH 13.7 % (11.5-14.0); SEGMENTED NEUTROPHILS % (AUTO) 77.3 % (42-78); TOTAL CELLS COUNTED % (AUTO) 100 %; WHITE BLOOD COUNT 12.2 10^3/uL (4.0-10.5)
[2019-05-09 02:46] LABS: APPEARANCE,URINE CLEAR; BILIRUBIN,URINE NEGATIVE (NEGATIVE); CALCIUM OXALATE CRYSTALS,URINE FEW /HPF; COLOR,URINE YELLOW; GLUCOSE, URINE NEGATIVE (NEGATIVE); KETONES,URINE NEGATIVE (NEGATIVE); LEUKOCYTE ESTERASE,URINE NEGATIVE (NEGATIVE); NITRITE,URINE NEGATIVE (NEGATIVE); PROTEIN,URINE NEGATIVE (NEGATIVE); UROBILINOGEN,URINE NEGATIVE mg/dL (<2.0)
[2019-05-09 03:01] LABS: ALANINE AMINOTRANSFERASE 17 U/L (21-72); ALBUMIN 3.2 g/dL (3.5-5.0); ALKALINE PHOSPHATASE 114 U/L (38-126); ANION GAP 7 (5-19); ASPARTATE AMINO TRANSFERASE 22 U/L (17-59); BILIRUBIN,DIRECT 0.2 mg/dL (0.0-0.4); BILIRUBIN,TOTAL 0.6 mg/dL (0.2-1.3); BLOOD UREA NITROGEN 22 mg/dL (7-20); CALCIUM 9.5 mg/dL (8.4-10.2); CARBON DIOXIDE 28 mmol/L (22-30); CHLORIDE 99 mmol/L (98-107); GLUCOSE 98 mg/dL (75-110); POTASSIUM 4.3 mmol/L (3.6-5.0); SODIUM 133.6 mmol/L (137-145)
[2019-05-09 04:20] VITALS: BP 149/78
== END 2019-05-09 04:20 | disposition home or self-care (01) ==
LOC: ER 23:40
DX: C34.90 Malignant neoplasm of unspecified part of unspecified bronchus or lung (principal); C78.7 Secondary malignant neoplasm of liver and intrahepatic bile duct; C79.00 Secondary malignant neoplasm of unspecified kidney and renal pelvis; R18.0 Malignant ascites; R63.0 Anorexia; Z88.8 Allergy status to other drugs, medicaments and biological substances; I10 Essential (primary) hypertension
CPT/HCPCS: 99283; 36415; 85025; 80053; 81001; J3490

== ENCOUNTER 2019-05-31 11:22 | Day surgery (SDC) | payer BC ==
[2019-05-31 12:15] LABS: HEMATOCRIT 37.2 % (37.9-51.0); HEMOGLOBIN 12.4 g/dL (13.5-17.0); MEAN CORPUSCULAR HEMOGLOBIN 28.7 pg (27.0-33.4); MEAN CORPUSCULAR HGB CONC 33.3 g/dL (32.0-36.0); MEAN CORPUSCULAR VOLUME 86 fl (80-97); PLATELET COUNT 494 10^3/uL (150-450); RED BLOOD COUNT 4.32 10^6/uL (4.35-5.55); RED CELL DISTRIBUTION WIDTH 14.1 % (11.5-14.0); WHITE BLOOD COUNT 8.8 10^3/uL (4.0-10.5)
[2019-05-31 12:17] LABS: INTERNATIONAL RATION (INR) 1.05; PROTHROMBIN TIME 13.7 SEC (11.4-15.4)
[2019-05-31 12:18] LABS: PARTIAL THROMBOPLASTIN TIME 30.5 SEC (23.5-35.8)
[2019-05-31 12:30] LABS: BLOOD UREA NITROGEN 47 mg/dL (7-20)
--- NOTE | 2019-05-31 15:59 | RADIOLOGY REPORT (SQ) ---
EXAM DESCRIPTION: U/S ABD PARACENTESIS COMPLETED DATE/TIME: 05/31/2019 3:48 pm REASON FOR STUDY: ASCITES R18.8 OTHER ASCITES COMPARISON: 05/23/2019 LIMITATIONS: None. PROCEDURE: Procedure, risks, benefit, and alternative explained to patient who then gave written con sent. The right lower abdominal wall marked using ultrasound guidance. A time-out was called for co rrect marking verification. Abdomen prepped and draped using sterile technique. Local anesthesia ach ieved using 10 ml of 1% lidocaine injection. A 6fr [id number]-Mwxhvotu set was introduced into the perit smith cavity. Fluid was drained. The catheter was removed and entry site was covered with sterile b andage. No immediate complications noted. Images acquired during the procedure were stored on PACS. FINDINGS: ENTRY SITE: Right lower quadrant FLUID VOLUME: 5 L FLUID ANALYSIS: Straw-colored OTHER: Fluid sent to the lab for testing. IMPRESSION: SUCCESSFUL ULTRASOUND GUIDED PARACENTESIS. COMMENT: Patient medication list reviewed:Yes- Quality ID# [id number]:Eligible professional attests to docu menting in the medical record they obtained, updated, or reviewed the patient's current medications. TECHNICAL DOCUMENTATION: JOB ID: [id number] [employer]- All Rights Reserved Reading location - IP/workstation name: [email or web address]
[2019-05-31 16:32] VITALS: BP 117/68
== END 2019-05-31 16:35 | disposition home or self-care (01) ==
LOC: RAD 11:22
PROVIDERS: ATTEND Internal Medicine Hematology & Oncology
DX: R18.8 Other ascites (principal); Z79.899 Other long term (current) drug therapy
CPT/HCPCS: 36415; 49083; 82565; 84520; 85027; 85610; 85730; 88305

== ENCOUNTER 2019-06-13 11:45 | Day surgery (SDC) | payer BC ==
--- NOTE | 2019-06-13 15:34 | RADIOLOGY REPORT (SQ) ---
EXAM DESCRIPTION: U/S ABD PARACENTESIS COMPLETED DATE/TIME: 06/13/2019 2:51 pm REASON FOR STUDY: ASCITES COMPARISON 05/31/2019 LIMITATIONS: None. PROCEDURE: After obtaining informed consent, the patient was brought to the ultrasound suite. The p rocedure was performed with the patient on a gurney. Ultrasound was used to identify a prominent poc ket of ascites in the right lower quadrant. An appropriate access site was selected. The patient wa s prepped and draped in usual sterile fashion. The access site was anesthetized with 6 mL 1% lidoca ine. A [id number]-D-Ydvgdzna needle was advanced into the fluid. After aspiration of fluid the needle, th e catheter was advanced off the needle into the fluid. A total of 6,000 mL of clear yellow fluid was removed. The patient tolerated the procedure well left the department in satisfactory condition. IMPRESSION: Successful ultrasound-guided palliative paracentesis COMMENT: Patient medication list reviewed: Yes- Quality ID# [id number]:Eligible professional attests to doc umenting in the medical record they obtained, updated, or reviewed the patient's current medications. TECHNICAL DOCUMENTATION: JOB ID: [id number] [employer]- All Rights Reserved Reading location - IP/workstation name: [email or web address]
[2019-06-13 16:26] VITALS: BP 119/75
== END 2019-06-13 15:45 | disposition home or self-care (01) ==
LOC: RAD 11:45
PROVIDERS: ATTEND Internal Medicine Hematology & Oncology
DX: R18.8 Other ascites (principal)
CPT/HCPCS: 49083

== ENCOUNTER 2019-06-22 07:12 | Day surgery (SDC) | payer BC ==
[2019-06-22 10:40] VITALS: BP 110/67
--- NOTE | 2019-06-22 17:31 | Discharge Summary ---
Discharge Summary (SDC) - Discharge Final Diagnosis: Lung cancer, malignant ascites Date of Surgery: 06/22/19 Discharge Date: 06/22/19 Condition: Stable Forms: Discharge POC-Surgical Service Treatment or Instructions: KEEP DRESSING CLEAN, DRY, AND INTACT CALL PHYSICIAN OR RETURN TO ER IF ANY PROBLEMS WITH REDNESS, SWELLING, OR DRAINAGE Referrals: MARISSA HARVEY MD [ACTIVE STAFF] - Discharge Diet: As Tolerated Respiratory Treatments at Home: Deep Breathing/Coughing, Incentive Spirometer Discharge Activity: Activity As Tolerated Home Care Assistance: None Needed Report the Following to Your Physician Immediately: Shortness of Breath, Nausea, Vomiting, Increase in Pain, Fever over 101 Degrees, Unusual Bleeding, Redness, Swelling, IV Site Infection Signs
--- NOTE | 2019-06-22 17:36 | Operative Report ---
Nonrecallable Operative Report DATE OF SURGERY: 06/22/19 PREOPERATIVE DIAGNOSIS: Lung cancer and malignant ascites POSTOPERATIVE DIAGNOSIS: Same as above OPERATION: Ultrasound-guided paracentesis SURGEON: MARISSA HARVEY ANESTHESIA: Local TISSUE REMOVED OR ALTERED: 8.3 L of ascites COMPLICATIONS: None apparent ESTIMATED BLOOD LOSS: Minimal PROCEDURE: After informed consent was obtained, the patient was sat in the upright position in the endoscopy suite. An ultrasound was used to identify a suitable area in the left lower quadrant for placement of the percutaneous drainage catheter. Under direct ultrasonic guidance, the paracentesis catheter was inserted into the abdominal cavity. Clear, blood-tinged ascites was withdrawn into the syringe. The catheter was then attached to suction. Approximately 8.3 L of malignant ascites was then removed from the patient's abdomen. Once no more ascites could be removed, the patient was laid flat, and a dressing was placed. The patient's heart rate and blood pressure remained stable and normal throughout the procedure. His saturations actually improved after completion of the procedure. The patient was then taken to recovery in fair, but stable, condition.
== END 2019-06-22 11:02 | disposition home or self-care (01) ==
LOC: END 07:12
PROVIDERS: ATTEND Surgery
DX: R18.0 Malignant ascites (principal); C34.90 Malignant neoplasm of unspecified part of unspecified bronchus or lung
CPT/HCPCS: 49082

== ENCOUNTER 2019-06-28 05:32 | Day surgery (SDC) | payer BC ==
[2019-06-27 08:20] LABS: HEMATOCRIT 34.6 % (37.9-51.0); HEMOGLOBIN 11.4 g/dL (13.5-17.0); MEAN CORPUSCULAR HEMOGLOBIN 27.6 pg (27.0-33.4); MEAN CORPUSCULAR HGB CONC 32.9 g/dL (32.0-36.0); MEAN CORPUSCULAR VOLUME 84 fl (80-97); PLATELET COUNT 656 10^3/uL (150-450); RED BLOOD COUNT 4.13 10^6/uL (4.35-5.55); RED CELL DISTRIBUTION WIDTH 14.6 % (11.5-14.0); WHITE BLOOD COUNT 15.9 10^3/uL (4.0-10.5)
[2019-06-27 08:24] LABS: INTERNATIONAL RATION (INR) 1.03; PROTHROMBIN TIME 13.6 SEC (11.4-15.4)
[2019-06-27 08:48] LABS: ALBUMIN 2.8 g/dL (3.5-5.0); ALKALINE PHOSPHATASE 178 U/L (38-126); ANION GAP 16 (5-19); ASPARTATE AMINO TRANSFERASE 25 U/L (17-59); BILIRUBIN,DIRECT 0.5 mg/dL (0.0-0.4); BILIRUBIN,TOTAL 0.6 mg/dL (0.2-1.3); BLOOD UREA NITROGEN 100 mg/dL (7-20); CALCIUM 9.4 mg/dL (8.4-10.2); CARBON DIOXIDE 23 mmol/L (22-30); CHLORIDE 82 mmol/L (98-107); GLUCOSE 75 mg/dL (75-110)
[2019-06-27 09:20] LABS: POTASSIUM 6.1 mmol/L (3.6-5.0)
--- NOTE | 2019-06-27 14:45 | EKG REPORT ---
SEVERITY:- BORDERLINE ECG - SINUS RHYTHM LOW VOLTAGE IN FRONTAL LEADS BORDERLINE T ABNORMALITIES, INFERIOR LEADS : Confirmed by: Christina Burch MD 27-Jun-2019 14:45:04
[~2019-06-28 05:32] MED LIST: CEFAZOLIN 1 GM/D5W RTU 1 GM/50 ML RTUPB IV ONE; CEFAZOLIN 1 GM/D5W RTU 1 GM/50 ML RTUPB IV PRN
[2019-06-28 06:30] LABS: HEMATOCRIT 34.3 % (37.9-51.0); HEMOGLOBIN 11.1 g/dL (13.5-17.0); MEAN CORPUSCULAR HEMOGLOBIN 27.4 pg (27.0-33.4); MEAN CORPUSCULAR HGB CONC 32.5 g/dL (32.0-36.0); MEAN CORPUSCULAR VOLUME 84 fl (80-97); PLATELET COUNT 622 10^3/uL (150-450); RED BLOOD COUNT 4.07 10^6/uL (4.35-5.55); RED CELL DISTRIBUTION WIDTH 14.5 % (11.5-14.0); WHITE BLOOD COUNT 17.5 10^3/uL (4.0-10.5)
[2019-06-28 06:34] LABS: INTERNATIONAL RATION (INR) 1.07; PROTHROMBIN TIME 13.9 SEC (11.4-15.4)
[2019-06-28] MEDS ORDERED: MIDAZOLAM 2 MG/2 ML INJ ONE (07:03)
[2019-06-28] MEDS ORDERED: FENTANYL CITRATE INJ/PF 250 MCG/5 ML AMPULE ONE (07:03)
[2019-06-28] MEDS ORDERED: DEXAMETHASONE SOD PHOSPHATE INJ 4 MG/1 ML VIAL ONE (07:04)
[2019-06-28] MEDS ORDERED: ONDANSETRON HCL INJ/PF 4 MG/2 ML SDV ONE (07:04)
[2019-06-28] MEDS ORDERED: MORPHINE SULFATE 10 MG/ML INJ ONE (07:04)
[2019-06-28] MEDS ORDERED: PROPOFOL INJ 200 MG/20 ML VIAL IV ONE (07:04)
[2019-06-28 07:12] LABS: ABSOLUTE LYMPHOCYTES# (MANUAL) 0.4 10^3/uL (0.5-4.7); ABSOLUTE MONOCYTES # (MANUAL) 0.2 10^3/uL (0.1-1.4); ANISOCYTOSIS SLIGHT; BASOPHILS % (MANUAL) 0 % (0-2); EOSINOPHILS % (MANUAL) 1 % (0-6); LYMPHOCYTES % (MANUAL) 2 % (13-45); MONOCYTES % (MANUAL) 1 % (3-13); PLATELET COMMENT INCREASED; SEGMENTED NEUTROPHILS % (MAN) 96 % (42-78); TOTAL CELLS COUNTED 100; TOXIC VACUOLATION PRESENT
--- NOTE | 2019-06-28 07:27 | RADIOLOGY REPORT (SQ) ---
EXAM DESCRIPTION: XR CHEST 1 VIEW COMPLETED DATE/TME: 06/28/2019 00:00 CLINICAL HISTORY: 63 years Male, PRE-OP COMPARISON: CT and CR, April 21, 2019. NUMBER OF VIEWS/TECHNIQUE: 1/AP FINDINGS: Small right apical strandy opacity. Small obscuration/effusion of the right costophrenic angle. Mediastinal clips. Normal cardiac silhouette size. No pneumothorax. Stable bony thorax. IMPRESSION: Small strandy and patchy opacity at the right lung apex and right lung base consistent with prior exams.
[2019-06-28 07:55] LABS: ALBUMIN 2.6 g/dL (3.5-5.0); ALKALINE PHOSPHATASE 166 U/L (38-126); ANION GAP 14 (5-19); ASPARTATE AMINO TRANSFERASE 24 U/L (17-59); BILIRUBIN,DIRECT 0.3 mg/dL (0.0-0.4); BILIRUBIN,TOTAL 0.7 mg/dL (0.2-1.3); BLOOD UREA NITROGEN 95 mg/dL (7-20); CALCIUM 9.2 mg/dL (8.4-10.2); CARBON DIOXIDE 23 mmol/L (22-30); CHLORIDE 84 mmol/L (98-107); GLUCOSE 77 mg/dL (75-110); POTASSIUM 5.3 mmol/L (3.6-5.0); TOTAL PROTEIN 5.7 g/dL (6.3-8.2)
[2019-06-28] MEDS ORDERED: LIDOCAINE 1% INJ (10 MG/ML) 10 ML MDV INJ ONE ×2 (08:00)
[2019-06-28] MEDS ORDERED: BUPIVACAINE HCL 0.25 % INJ/PF (2.5 MG/1 ML) 30 ML VIAL INJ ONE ×2 (08:00)
[2019-06-28] MEDS ORDERED: FENTANYL CITRATE INJ/PF 100 MCG/2 ML AMPUL IV PRN ×3 (08:05)
[2019-06-28] MEDS ORDERED: PROMETHAZINE HCL INJ 25 MG/1 ML VIAL IV PRN ×2 (08:05)
--- NOTE | 2019-06-28 08:15 | EKG REPORT ---
SEVERITY:- ABNORMAL ECG - SINUS RHYTHM LOW VOLTAGE THROUGHOUT CONSIDER ANTEROSEPTAL INFARCT NONSPECIFIC T ABNORMALITIES, LATERAL LEADS : Confirmed by: Christina Burch MD 28-Jun-2019 08:14:29
--- NOTE | 2019-06-28 08:44 | Discharge Summary ---
Discharge Summary (SDC) - Discharge Final Diagnosis: Lung cancer. Malignant ascites. Date of Surgery: 06/28/19 Discharge Date: 06/28/19 Condition: Fair Treatment or Instructions: Discharge home. Diet as tolerated. Activity: No lifting greater than 10 pounds, nonstrenuous activity. Follow-up with me in 3 weeks. Resume hospice, my office to help arrange. Referrals: CARLOTTA LUCIO MD [Primary Care Provider] - Discharge Diet: As Tolerated Respiratory Treatments at Home: Deep Breathing/Coughing, Incentive Spirometer Discharge Activity: No Lifting Over 10 Pounds, No Lifting/Push/Pulling Home Care Assistance: Hospice Report the Following to Your Physician Immediately: Shortness of Breath, Nausea, Vomiting, Increase in Pain, Fever over 101 Degrees, Unusual Bleeding, Redness
--- NOTE | 2019-06-28 08:48 | Operative Report ---
Nonrecallable Operative Report DATE OF SURGERY: 06/28/19 PREOPERATIVE DIAGNOSIS: Lung cancer and malignant ascites. POSTOPERATIVE DIAGNOSIS: Same as above. OPERATION: Placement of peritoneal dialysis catheter in the left abdomen. SURGEON: MARISSA HARVEY ANESTHESIA: LMAC TISSUE REMOVED OR ALTERED: None COMPLICATIONS: None apparent ESTIMATED BLOOD LOSS: Minimal PROCEDURE: Drains/implants: Peritoneal dialysis catheter. Procedure in detail: After informed consent was obtained, the patient was brought into the operating room and laid in the supine position. The area of the abdomen was prepped and draped in a normal sterile fashion. An incision was created to the left of the umbilicus. Dissection was carried through the subcutaneous tissue using sharp and blunt dissection. The anterior sheath was incised sharply. The rectus muscle was spread, the posterior sheath was then grasped and incised sharply. The abdomen was entered. Next, the peritoneal dialysis catheter was inserted into the abdomen and directed into the pelvis with the use of a stylette. Stylette was removed, leaving the peritoneal dial ysis catheter within the abdominal cavity. The catheter was then tunneled laterally and inferiorly through a separate stab incision. This was done, ensuring a gentle curve to the catheter. Next, the cuff was sutured to the anterior fascia. This was done with 0 Prolene pursestring suture. Next, the catheter was sutured to the skin at the exit point using 2-0 nylon suture. The medial incision was then closed using 4-0 Vicryl Rapide suture in subcuticular fashion. Dressings were then placed. The catheter was instilled with sterile saline. The sterile saline instilled easily, and returned without difficulty. Once this was confirmed, the procedure was concluded. All sponge, instrument, and needle counts were correct x2. Condition: Fair.
[2019-06-28] MEDS ORDERED: FENTANYL CITRATE INJ/PF 100 MCG/2 ML AMPUL ONE (08:54)
[2019-06-28 10:53] VITALS: BP 100/66
== END 2019-06-28 10:15 | disposition home or self-care (01) ==
LOC: OROUT 05:32
PROVIDERS: ATTEND Surgery
DX: R18.8 Other ascites (principal); C34.90 Malignant neoplasm of unspecified part of unspecified bronchus or lung; I10 Essential (primary) hypertension; Z87.891 Personal history of nicotine dependence; Z79.899 Other long term (current) drug therapy; R18.0 Malignant ascites; Z01.818 Encounter for other preprocedural examination
CPT/HCPCS: 93005 ×2; 36415 ×2; 85025; 85027; 85610 ×2; 85730; 80053 ×2; 71045; 93010 ×2; 49421; J2250; J0690; J3010; J2405; J2704; J1100; J2270